=== PATIENT | female | born 1980 | race Caucasian/White ===

== ENCOUNTER 2018-07-18 12:38 | Emergency (ER) | payer OTHER ==
[~2018-07-18] VITALS: Ht 160 cm; Wt 90.7 kg
[2018-07-18 13:08] VITALS: BP 159/96
--- NOTE | 2018-07-18 13:30 | RAD ---
Left ankle x-rays 3 views HISTORY: Left medial ankle pain. FINDINGS: No fracture or dislocation of the ankle. No talus osteochondral lesion evident. Small spur of the inferior lateral malleolus. Soft tissues unremarkable. IMPRESSION: No acute osseous injury. Electronically signed by: Natalio Rosales MD (07/18/2018 1:26 PM) [facility]
[2018-07-18] MEDS ORDERED: DICL50TA4 PO (14:34)
--- NOTE | 2018-07-18 14:34 | PHYS DOC ---
Past Medical History Past Medical History: Other Additional Past Medical Histor: PSORIARIS Past Surgical History: Tubal ligation Alcohol Use: Occasionally Drug Use: None Adult General Chief Complaint Chief Complaint: ANKLE PROBLEM HPI HPI Patient is a 38 year old male who presents with 6/10 pain around his Achilles tendon of the left leg that began this morning. Patient denies any known injury. Patient states the pain is worse on weight bearing. She states she is able to flex and extend the foot. Describes the pain as sharp and intermittent. Review of Systems Review of Systems Constitutional: Denies fever or chills [] Musculoskeletal: Reports left ankle pain Integument: Denies rash or skin lesions [] Neurologic: Denies headache, focal weakness or sensory changes [] All other systems were reviewed and found to be within normal limits, except as documented in this note. Current Medications Current Medications Current Medications Medications (Trade) Dose Ordered Sig/Kurt Start Time Stop Time Status Last Admin Dose Admin Naproxen (Naprosyn) 500 mg 1X STAT 07/18/18 13:55 07/18/18 13:58 DC 07/18/18 14:45 500 MG Prednisone (Prednisone) 50 mg 1X ONCE 07/18/18 14:00 07/18/18 14:01 DC 07/18/18 14:45 50 MG Allergies Allergies Allergies Coded Allergies Type Severity Reaction Last Updated Verified hydrocodone Allergy Intermediate Hives 07/18/18 Yes Physical Exam Physical Exam Constitutional: Well developed, well nourished, no acute distress, non-toxic appearance. [] HENT: Normocephalic, atraumatic, bilateral external ears normal, oropharynx moist, no oral exudates, nose normal. [] Skin: Warm, dry, no erythema, no rash. [] Back: No tenderness, no CVA tenderness. [] Extremities: Left ankle with no obvious deformity. Tenderness on palpation along the Achilles tendon. Full range of motion to the left ankle including flexion and extension of the foot. Negative Butler sign. +2 left pedal pulse. Cap refill less than 2 seconds to the left toes. Neurologic: Alert and oriented X 3, normal motor function, normal sensory function, no focal deficits noted. [] Psychologic: Affect normal, judgement normal, mood normal. [] Current Patient Data Vital Signs Vital Signs Date Time Temp Pulse Resp B/P (MAP) Pulse Ox O2 Delivery O2 Flow Rate FiO2 07/18/18 13:08 98.1 85 16 159/96 (117) 100 Room Air 98.1 EKG EKG [] Radiology/Procedures Radiology/Procedures []PROCEDURE: ANKLE LEFT 3V Left ankle x-rays 3 views HISTORY: Left medial ankle pain. FINDINGS: No fracture or dislocation of the ankle. No talus osteochondral lesion evident. Small spur of the inferior lateral malleolus. Soft tissues unremarkable. IMPRESSION: No acute osseous injury. Electronically signed by: Tiffani Rosales MD (07/18/2018 1:26 PM) [facility] DICTATED and SIGNED BY: TIFFANI ROSALES MD DATE: 07/18/18 0117 Course & Med Decision Making Course & Med Decision Making Pertinent Labs and Imaging studies reviewed. (See chart for details) This is a 38-year-old female patient presented to the ED today with pain around her left Achilles tendon. No known injury. Patient able to flex and extend the foot with no difficulty. Negative Butler's sign. Left ankle x-rays interpreted by radiologist are negative for any acute findings. Patient was placed in a posterior leg splint by the tomography technologist, neurovascular exam done by me is normal. Ice elevation encouraged. Diclofenac for pain. Follow-up with orthopedic doctor in the next 7 days if symptoms continue. Dragon Disclaimer Dragon Disclaimer This electronic medical record was generated, in whole or in part, using a voice recognition dictation system. Splinting Splinting : Location: Left leg Hand-Made Type: orthoglass Splint: posterior OCL Pre-Proc Neuro Vasc Exam: normal Post-Proc Neuro Vasc Exam: normal, unchanged from pre-exam Departure Departure Impression: Primary Impression: Left ankle sprain Disposition: 01 HOME, SELF-CARE Condition: STABLE Referrals: NO PCP (PCP) DIANA ZAMARRIPA II, MD follow up in one week Patient Instructions: Ankle Sprain, Acute, with Phase I Rehab-SportsMed Additional Instructions: You were evaluated in the emergency room for left ankle pain. Your left ankle x- rays are negative for any acute findings. Continue to ice and elevate the extremity. Take the prescribed medications as needed for pain. Follow-up with orthopedic doctor in one week if symptoms continue. Scripts Diclofenac Sodium (DICLOFENAC SODIUM) 50 Mg Tablet.dr 1 TAB PO BID, #60 TAB 1 Refill Prov: GABINO MICHAEL APRN 07/18/18 Attending Signature Attending Signature I have reviewed the PA/COLOR FINISHER's note and plan of care. I was available for consultation as needed during the patient's visit in the emergency department. I agree with the clinical impression, plan, and disposition. Problem Qualifiers Primary Impression: Left ankle sprain Encounter type: initial encounter Involved ligament of ankle: unspecified ligament Qualified Codes: S93.402A - Sprain of unspecified ligament of left ankle, initial encounter GABINO MICHAEL APRN Jul 18, 2018 14:34 KIESHA ZUÑIGA DO Jul 21, 2018 19:52
[2018-07-18] MEDS: predniSONE 10 MG TABLET PO ONE (14:45)
[2018-07-18] MEDS: NAPROXEN 500 MG TABLET PO STA (14:45)
== END 2018-07-18 14:50 | disposition home or self-care (01) ==
LOC: ER 12:38
DX: S93.402A Sprain of unspecified ligament of left ankle, initial encounter (principal); X58.XXXA Exposure to other specified factors, initial encounter; Y93.89 Activity, other specified; Y92.89 Other specified places as the place of occurrence of the external cause; Y99.8 Other external cause status
CPT/HCPCS: 29515; 73610; 99283; J7512